=== PATIENT | female | born 2000 | race African-American/Black ===

== ENCOUNTER 2019-04-19 16:06 | Emergency (ER) | payer SELFPAY ==
[~2019-04-19] VITALS: Ht 177.8 cm; Wt 83.5 kg
--- OUTSIDE RECORDS SUMMARY | 2019-04-19 16:08 | XMS REPORT | Clinical Summary ---
Author Author [facility] Address Unknown Phone Unavailable Care Team Providers Care Sanitation Inspector Name Role Phone Pcp, No PCP Unavailable Allergies No Known Allergies Medications End Date Status Medication Sig Dispensed Refills Start Date 10/20/2018 nitrofurantoin, Take 1 14 capsule 0 macrocrystal-monohydrate, capsule (100 8 (MACROBID) 100 MG capsule mg total) by mouth 2 (two) times daily for 7 days. Active Problems Not on file Encounters Care Team Description Date Type Specialty OtJason dexter MD Acute cystitis without hematuria (Primary Dx); , unspecified gestational age; BV (bacterial vaginosis) 10/13/2018 Emergency Emergency Medicine 10/13/2018 Travel after 04/18/2018 Social History Date Tobacco Use Types Packs/Day Years Used Never Smoker Smokeless Tobacco: Never Used Alcohol Use Drinks/Week oz/Week Comments No Alcohol Habits Answer Date Recorded How often do you have a drink containing alcohol? Never 10/13/2018 How many drinks containing alcohol do you have on Not asked a typical day when you are drinking? How often do you have six or more drinks on one Not asked occasion? Sex Assigned at Date Recorded Not on file Industry Job Start Date Occupation Not on file Not on file Not on file Travel End Travel History Travel Start No recent travel history available. Last Filed Vital Signs Time Taken Vital Sign Reading 10/13/2018 10:54 AM [facility] Blood Pressure 136/65 10/13/2018 10:54 AM [facility] Pulse 50 10/13/2018 10:54 AM [facility] Temperature 36.9 C (98.5 F) 10/13/2018 10:54 AM [facility] Respiratory Rate 20 10/13/2018 10:54 AM [facility] Oxygen Saturation 97% - Inhaled Oxygen - Concentration 10/13/2018 10:54 AM [facility] Weight 82.1 kg (181 lb) 10/13/2018 10:54 AM [facility] Height 177.8 cm (5' 10") 10/13/2018 10:54 AM [facility] Body Mass Index 25.97 Plan of Treatment Not on file Procedures Comments Procedure Name Priority Date/Time Associated Diagnosis SCREEN, URINE STAT 10/13/2018 10:59 AM [facility] URINALYSIS W/ MICROSCOPIC STAT 10/13/2018 10:59 AM [facility] after 04/18/2018 Results * Screen, urine (10/13/2018 10:59 AM [facility]) Preg Test, Ur Positive [facility], [facility], [facility] Specimen Urine Performing Organization Address City/State/[facility] Cent[facility] Phone Number [facility] [place] [address] [place] [address] [facility], [facility] [place] [facility], [facility] * Urinalysis w/Microscopic (10/13/2018 10:59 AM [facility]) Color, UA Yellow [facility], [facility] Clarity, UA Clear [facility], [facility] Specific Industry, UA 1.020 1.001 - 1.035 [facility], [facility] pH, UA 7.5 5.0 - 8.0 [facility], [facility] Protein, UA Negative Negative [facility], [facility] Glucose, UA Negative Negative [facility], [facility] Ketones[facility] UA Negative Negative [facility], [facility] Bilirubin, UA Negative Negative [facility], [facility] Blood[facility] UA Negative Negative [facility], [facility], [facility] Nitrite, UA Negative Negative [facility], [facility], [facility] Leukocytes, UA Moderate (A) Negative [facility], [facility] [place], [facility] Urobilinogen, UA 1.0 0.2 - 1.0 mg/dL [facility], [facility] [place], [facility] Bacteria, UA Few [facility] [place] RBC, UA None Seen /HPF [facility] WBC, UA 5-10 /HPF [facility] SQUAMOUS EPITHELIAL 5-10Comment: Clue cells seen. /HPF [facility], [facility], [facility] Specimen Source [facility], [facility] [place], [facility] Specimen Urine Performing Organization Address City/State/Zipcode Phone Number [facility] [address] [place] [address] [facility], [facility], [facility] after 04/18/2018
--- OUTSIDE RECORDS SUMMARY | 2019-04-19 16:09 | XMS REPORT ---
Author Author [facility] Address Unknown Phone Unavailable Care Team Providers Care Senior International Tax Manager Name Role Phone SELVIN SARKAR Unavailable Unavailable Problems This patient has no known problems. Allergies, Adverse Reactions, Alerts This patient has no known allergies or adverse reactions. Medications This patient has no known medications. Encounters Start Date/Time End Date/Time Encounter Type Admission Type Attending Clinicians Care Facility Care Department Encounter ID 2017-04-13 00:00:00 2017-04-13 00:00:00 Outpatient [facility] [id number] Results Test Description Test Time Test Comments Text Results Atomic Results Result Comments URINALYSIS W/ MICROSCOPIC 2018-10-13 11:10:00 COLOR (BEAKER) (test cioi=841) Yellow CLARITY (BEAKER) (test pyfn=241) Clear SPECIFIC GRAVITY UA (BEAKER) (test kpsc=018) 1.020 1.001-1.035 PH UA (BEAKER) (test rhtq=632) 7.5 5.0-8.0 PROTEIN UA (BEAKER) (test wwje=675) Negative Negative GLUCOSE UA (BEAKER) (test zfsc=255) Negative Negative KETONES UA (BEAKER) (test dycg=447) Negative Negative BILIRUBIN UA (BEAKER) (test uwdn=770) Negative Negative BLOOD UA (BEAKER) (test uevg=535) Negative Negative NITRITE UA (BEAKER) (test gury=041) Negative Negative LEUKOCYTE ESTERASE UA (BEAKER) (test fvpu=111) Moderate Negative UROBILINOGEN UA (BEAKER) (test tgbn=288) 1.0 mg/dL 0.2-1.0 BACTERIA (BEAKER) (test iwnh=166) Few RBC UA-MANUAL (BEAKER) (test fhlq=2656) None Seen /HPF WBC UA-MANUAL (BEAKER) (test chrt=6409) 5-10 /HPF SQUAMOUS EPITHELIAL MANUAL (BEAKER) (test cftl=1469) 5-10 /HPF Clue cells seen. SOURCE(HOSTING) (test cjic=2491) SCREEN, [id number] 11:06:00* Test Item Value Reference Range Comments TEST URINE (BEAKER) (test wvth=691) Positive
[2019-04-19 17:14] VITALS: BP 138/88
== END 2019-04-19 17:09 | disposition home or self-care (01) ==
LOC: FSED 16:06
DX: R10.32 Left lower quadrant pain (principal); N83.202 Unspecified ovarian cyst, left side; N30.90 Cystitis, unspecified without hematuria
CPT/HCPCS: 81003; 81025; 99283

== ENCOUNTER 2020-11-03 19:42 | Emergency (ER) | payer SELFPAY ==
[~2020-11-03] VITALS: Ht 177.8 cm; Wt 83.5 kg
[2020-11-03 20:24] LABS: BASOPHILS % 0.3 % (0.0-1.0); EOSINOPHILS # (AUTO) 0.2 (0.0-0.4); EOSINOPHILS % 3.2 % (0.0-6.0); HEMATOCRIT 39.2 % (34.2-44.1); HEMOGLOBIN 12.8 g/dL (12.0-16.0); LYMPHOCYTES % 39.6 % (18.0-39.1); MEAN CORPUSCULAR HEMOGLOBIN 28.5 pg (28-32); MEAN CORPUSCULAR HGB CONC 32.7 g/dL (31-35); MEAN CORPUSCULAR VOLUME 87.3 fL (81-99); MONOCYTES # (AUTO) 0.6 (0.2-0.8); NEUTROPHILS # (AUTO) 3.6 (2.1-6.9); NEUTROPHILS % 48.6 % (38.7-80.0); PLATELET COUNT 306 x10e3/uL (140-360); RED BLOOD COUNT 4.49 x10e6/uL (3.6-5.1)
[2020-11-03 21:02] LABS: CLARITY,URINE SL CLOUDY (CLEAR); COLOR,URINE YELLOW (YELLOW); KETONES,URINE NEGATIVE (NEGATIVE); LEUKOCYTE ESTERASE ,URINE TRACE (NEGATIVE); NITRITE,URINE NEGATIVE (NEGATIVE); PROTEIN,URINE DIPSTICK NEGATIVE (NEGATIVE)
[2020-11-03 21:03] LABS: URINE UROBILINOGEN 0.2 mg/dL (0.2 - 1)
[2020-11-03 21:06] LABS: BACTERIA,URINE FEW /HPF; EPITHELIAL CELLS,URINE FEW /LPF; RBC,URINE >50 /HPF (0-5)
== END 2020-11-03 22:35 | disposition home or self-care (01) ==
LOC: ER 20:09
DX: O20.0 Threatened abortion (principal); O23.41 Unspecified infection of urinary tract in pregnancy, first trimester
CPT/HCPCS: 36415; 81001; 84702; 85025; 99283